=== PATIENT | male | born 1955 | race African-American/Black ===

== ENCOUNTER 2022-11-10 08:35 | Observation (INO) | payer MEDICARE ==
[2022-11-10] MEDS ORDERED: SODIUM CHLORIDE 0.9% 500 ML 500 ML IV STA (09:15)
[2022-11-10] MEDS ORDERED: ASPIRIN 81 MG PO STA (09:15)
[2022-11-10 09:33] LABS: Basophils % (A) 1 %; Eosinophils # (A) 0.2 k/uL (0-0.7); Eosinophils % (A) 2 %; HCT 32.2 % (39.0-53.0); HGB 10.9 gm/dL (13.0-17.5); Lymphocytes # (A) 1.5 k/uL (1.0-4.8); Lymphocytes % (A) 19 %; MCH 25.3 pg (25.0-35.0); MCV 74.5 fL (80.0-100.0); Mean Platelet Volume 8.7; Microcytosis Slight; Monocytes # (A) 0.4 k/uL (0-1.0); Monocytes % (A) 5 %; Neutrophils # (A) 5.9 k/uL (1.3-7.7); Neutrophils % (A) 72 %; Platelet Count 392 k/uL (150-450); RBC 4.33 m/uL (4.30-5.90); RDW 14.2 % (11.5-15.5); WBC 8.1 k/uL (3.8-10.6)
--- NOTE | 2022-11-10 09:40 | XR ---
EXAMINATION TYPE: XR chest 2V DATE OF EXAM: 11/10/2022 9:28 AM COMPARISON: Chest radiographs from TECHNIQUE: XR chest 2V Frontal and lateral views of the chest. CLINICAL INDICATION:Male, 67 years old with history of dysrhythmia; FINDINGS: Lungs/Pleura: Low lung volumes are present. There is no evidence of pleural effusion, focal consolida tion, or pneumothorax. Pulmonary vascularity: Unremarkable. Heart/mediastinum: Cardiomediastinal silhouette is unremarkable. Musculoskeletal: No acute osseous pathology. IMPRESSION: Low lung volumes without acute process.
[2022-11-10 09:42] LABS: Albumin 3.1 g/dL (3.5-5.0); Calcium 8.8 mg/dL (8.4-10.2); Magnesium 1.8 mg/dL (1.6-2.3); Potassium 4.5 mmol/L (3.5-5.1); Total Bilirubin 0.9 mg/dL (0.2-1.3); Total Protein 6.7 g/dL (6.3-8.2)
[2022-11-10 09:47] LABS: INR 1.1 (<1.2); Prothrombin Time 11.5 sec (9.0-12.0)
[2022-11-10] MEDS ORDERED: MORPHINE SULFATE 4 MG/ML SYRINGE IVP STA (09:55)
--- NOTE | 2022-11-10 10:45 | CT ---
EXAMINATION TYPE: CT brain wo con CT DLP: 1202.4 mGycm, Automated exposure control for dose reduction was used. DATE OF EXAM: 11/10/2022 10:29 AM COMPARISON: None CLINICAL INDICATION:Male, 67 years old with history of altered mental status, syncope, ams TECHNIQUE: Brain: Axial CT images of the brain were obtained with coronal and sagittal reformats created and rev iewed. Contrast used: None. Oral contrast used: None. FINDINGS: Brain: Extra-axial spaces: No abnormal extra-axial fluid collections. Ventricular system: Within normal limits Cerebral parenchyma: No acute intraparenchymal hemorrhage or mass effect. The bravo-white junction is well differentiated. Cerebellum: Unremarkable. Mass effect: No evidence of midline shift. Intracranial vasculature: Atherosclerotic calcifications of the intracranial vessels. Soft tissues: Normal. Calvarium/osseous structures: No depressed skull fracture. Paranasal sinuses and mastoid air cells: Mild scattered paranasal sinus disease. Visualized orbits: Bilateral aphakia IMPRESSION: No acute intracranial process.
[2022-11-10] MEDS ORDERED: NALOXONE 0.4 MG/ML 1 ML VIAL IV PRN (11:09)
--- NOTE | 2022-11-10 11:12 | ED ---
General Adult HPI - General Chief complaint: Arrhythmia/Palpitations Stated complaint: bradycardia Time Seen by Provider: 11/10/22 09:02 Source: patient, EMS, RN notes reviewed, old records reviewed Mode of arrival: EMS Limitations: no limitations - History of Present Illness Initial comments: Patient is a 67-year-old male who was sent here from his rehab facility over concern for an episode of being unresponsive. Patient had a low heart rate earlier this morning. Seems slightly lethargic during that episode. It resolved as did his symptoms. Was sent here for further evaluation. Does have a known history of second-degree heart block. He is at rehab currently to regain his strength after recent UTI as well as fall. Does have some sacral ul cers that appear clean. Denies any chest pain or shortness of breath at this time. Denies any lightheadedness. Is asking for a cookie. Denies any other acute complaints at this time. Presents for further evaluation.He states he is not on blood thinners. - Related Data Home Medications Medication Instructions Recorded Confirmed Acetaminophen [Tylenol] 325 mg PO Q6H PRN 11/10/22 11/10/22 Aspirin EC [Ecotrin Low Dose] 81 mg PO DAILY 11/10/22 11/10/22 Atorvastatin Calcium [Lipitor] 40 mg PO DAILY 11/10/22 11/10/22 Cholecalciferol [Vitamin D3 (25 25 mcg PO DAILY 11/10/22 11/10/22 Mcg = 1000 Iu)] Coenzyme Q10 Tablet 100 mg PO BID 11/10/22 11/10/22 Cyanocobalamin [Vitamin B-12 1,000 mcg SQ QMONTHLY 11/10/22 11/10/22 Injection] Diclofenac Sodium [Voltaren] 75 mg PO BID PRN 11/10/22 11/10/22 Docusate [Colace] 100 mg PO BID 11/10/22 11/10/22 Dulaglutide [Trulicity] 1.5 mg SQ MO 11/10/22 11/10/22 Empagliflozin [Jardiance] 25 mg PO DAILY 11/10/22 11/10/22 Epoetin Nestor-Epbx [Retacrit] 4,000 units SQ MOWEFR 11/10/22 11/10/22 Ferrous Sulfate [Iron] 325 mg PO DAILY 11/10/22 11/10/22 Fluticasone Nasal [place] [Flonase 1 spray EA NOSTRIL Q12H 11/10/22 11/10/22 Nasal [place]] Furosemide [Lasix] 40 mg PO DAILY 11/10/22 11/10/22 INSULIN LISPRO (HumaLOG) [humaLOG] See Protocol SQ AC-TID 11/10/22 11/10/22 Insulin Glargine [Lantus Vial] 10 unit SQ DAILY 11/10/22 11/10/22 Lidocaine 5% Patch [Lidoderm] 2 patch TOPICAL DAILY 11/10/22 11/10/22 Losartan Potassium [Cozaar] 100 mg PO DAILY 11/10/22 11/10/22 Lutein 40 mg PO DAILY 11/10/22 11/10/22 Magnesium Hydroxide [Milk of 7,200 mg PO Q48H PRN 11/10/22 11/10/22 Magnesia Concentrate] Melatonin 1 mg PO HS 11/10/22 11/10/22 Metoprolol Succinate (ER) [Toprol 50 mg PO DAILY 11/10/22 11/10/22 Xl] Na Phos,M-B/Na Phos,Di-Ba [Fleet 133 ml RECTAL DAILY PRN 11/10/22 11/10/22 Adult] Pantoprazole Sodium [Protonix] 40 mg PO DAILY 11/10/22 11/10/22 Sennosides-Docusate Sodium 1 tab PO DAILY 11/10/22 11/10/22 [Senokot-S] Sennosides-Docusate Sodium 2 tab PO HS 11/10/22 11/10/22 [Senokot-S] Sildenafil Citrate 100 mg PO DAILY PRN 11/10/22 11/10/22 Tamsulosin HCl [Flomax] 0.4 mg PO DAILY 11/10/22 11/10/22 bisacodyL [Dulcolax] 10 mg RECTAL DAILY PRN 11/10/22 11/10/22 traMADol HCL 50 mg PO Q6H PRN 11/10/22 11/10/22 Allergies Allergy/AdvReac Type Severity Reaction Status Date / Time No Known Allergies Allergy Verified 11/10/22 12:04 Review of Systems ROS Statement: Those systems with pertinent positive or pertinent negative responses have been documented in the HPI. Review of Systems: CONST: Denies fever EYES: Denies blurry vision ENT: Denies nasal congestion C/V: Denies Chest pain RESP: Denies shortness of breath GI: Denies abdominal pain : Denies dysuria SKIN: Denies rash. MSK: Denies joint pain. NEURO: Denies headache ROS Other: All systems not noted in ROS Statement are negative. Past Medical History Past Medical History: Diabetes Mellitus, Hyperlipidemia, Hypertension History of Any Multi-Drug Resistant Organisms: None Reported Past Psychological History: No Psychological Hx Reported Smoking Status: Never smoker Past Alcohol Use History: None Reported Past Drug Use History: None Reported General Exam - General Exam Comments Initial Comments: General: Appears in no acute distress. HEAD: Normal with no signs of head trauma. EYES: PERRLA, EOMI, conjunctiva normal, no discharge. ENT: Hearing grossly intact, normal oropharynx. RESPIRATORY: Clear breath sounds bilaterally. No wheezes, rales, or rhonchi. C/V: Irregular rate and rhythm. S1 and S2 auscultated, no edema, peripheral pulses 2+ and intact throughout ABD: Abd is soft, nontender, nondistended EXT: Normal range of motion, no obvious deformity SKIN: Sacral decubitus ulcers appear clean. Patient also has a decubitus on the back of his neck which also appears clean. All appeared to be stage I to 2. NEURO: Alert and oriented 4. No acute focal deficits. Chronic weakness. Limitations: no limitations Course Vital Signs 11/10/22 11/10/22 11/10/22 08:53 09:00 10:00 Temperature 97.7 F Pulse Rate 71 71 57 L Respiratory 20 16 18 Rate Blood Pressure 173/94 173/94 164/91 O2 Sat by Pulse 99 97 99 Oximetry 11/10/22 11/10/22 11:00 12:00 Temperature Pulse Rate 64 49 L Respiratory 17 7 L Rate Blood Pressure 177/92 O2 Sat by Pulse 98 99 Oximetry Medical Decision Making - Medical Decision Making Based on the patient's presentation and physical exam, I'm concerned for a dysrhythmia for the patient. Has a known history of second-degree heart block. An episode of being more unresponsive/near syncopal at the nursing facility. Unknown if he fell. Patient was bradycardic at that time as well. Intermittently will have heart rates in the 40s here. Did recommend a cardiopulmonary workup which patient was in agreement with. Vital signs otherwise within acceptable limits. EKG does show what appears to be a second-degree heart block. Difficult to evaluated if it is type I or type II. Patient's laboratory studies are remarkable for a chronic anemia with a hemoglobin of 10.9 which is stable. Troponin is undetectable. Chest x-ray revealed no acute cardio pulmonary proces s. Brain CT revealed no acute intracranial injury. On reevaluation, patient is unchanged. He is asymptomatic. Patient's family is at bedside and I did update both the patient and family on his workup. Due to what appeared to be symptomatic bradycardia possibly, second-degree heart block I did recommend that we admit him to the hospital for cardiology evaluation. He was in agreement with this plan. Cardiology was consulted. I spoke with the admitting team, Dr. alas who is admitting for Dr. Pacheco who normally covers Dr. Cabello. He accepted the patient. Patient was admitted in stable condition. Patient was admitted to telemetry floor. Was pt. sent in by a medical professional or institution (, PA, [employer], urgent care, hospital, or intermediate...) When possible be specific @ -long-term for evaluation of bradycardia, near syncope. Did you speak to anyone other than the patient for history (EMS, parent, family, police, friend...)? What history was obtained from this source @ -No Did you review nursing and triage notes (agree or disagree)? Why? @ -I reviewed and agree with nursing and triage notes Were old charts reviewed (outside hosp., previous admission, EMS record, old EKG, old radiological studies, urgent care reports/EKG's, intermediate records)? Report findings @ -Yes, old charts were reviewed from the outside facility. Differential Diagnosis (chest pain, altered mental status, abdominal pain women, abdominal pain men, vaginal bleeding, weakness, fever, dyspnea, syncope, headache, dizziness, GI bleed, back pain, seizure, CVA, palpatations, mental health)? @ -Dehydration, near syncope, arrhythmia, heart block, CAD. This list is not all inclusive. EKG interpreted by me (3pts min.). @ -As above X-rays interpreted by me (1pt min.). @ -Chest x-ray revealed no acute cardiopulmonary process. CT interpreted by me (1pt min.). @ -None done U/S interpreted by me (1pt. min.). @ -None done What testing was considered but not performed or refused? (CT, X-rays, U/S, labs)? Why? @ -None What meds were considered but not given or refused? Why? @ -None Did you discuss the management of the patient with other professionals (professionals i.e. , PA, [employer], lab, RT, psych nurse, social professionals, chemist, teacher, chairman & chief executive officer, porter sample case)? Give summary @ -Yes, the admitting physician Dr. alas who accepted the admission. Was smoking cessation discussed for >3mins.? @ -No Was critical care preformed (if so, how long)? @ -No Were there social determinants of health that impacted care today? How? (Homel essness, low income, unemployed, alcoholism, drug addiction, transportation, low edu. Level, literacy, decrease access to med. care, shelter, rehab)? @ -No Was there de-escalation of care discussed even if they declined (Discuss DNR or withdrawal of care, Hospice)? DNR status @ -No What co-morbidities impacted this encounter? (DM, HTN, Smoking, COPD, CAD, Cancer, CVA, ARF, Chemo, Hep., AIDS, mental health diagnosis, sleep apnea, morbid obesity)? @ -Chronic debility, CAD, hypertension Was patient admitted / discharged? Hospital course, mention meds given and route, prescriptions, significant lab abnormalities, going to OR and other pertinent info. @ -Admitted to the hospital. See above for ED course. Undiagnosed new problem with uncertain prognosis? @ -No Drug Therapy requiring intensive monitoring for toxicity (Heparin, Nitro, Insulin, Cardizem)? @ -No Were any procedures done? @ -No Diagnosis/symptom? @ -Near syncope Acute, or Chronic, or Acute on Chronic? @ -Acute Uncomplicated (without systemic symptoms) or Complicated (systemic symptoms)? @ -Complicated Side effects of treatment? @ -No Exacerbation, Progression, or Severe Exacerbation? @ -No Poses a threat to life or bodily function? How? (Chest pain, [place], [place], pneumonia, PE, COPD, DKA, ARF, appy, cholecystitis, CVA, Diverticulitis, Homicidal, Suicidal, threat to staff... and all critical care pts) @ -No Diagnosis/symptom? @ -Second-degree heart block with bradycardia Acute, or Chronic, or Acute on Chronic? @ -Acute on chronic Uncomplicated (without systemic symptoms) or Complicated (systemic symptoms)? @ -Complicated Side effects of treatment? @ -none Exacerbation, Progression, or Severe Exacerbation] @ -no Poses a threat to life or bodily function? @ -Yes, if untreated can result in significant morbidity and mortality. - Lab Data Result diagrams: 11/10/22 09:20 11/10/22 09:20 Lab Results 11/10/22 11/10/22 11/10/22 Range/Units 09:20 09:20 09:20 WBC 8.1 (3.8-10.6) k/uL RBC 4.33 (4.30-5.90) m/uL Hgb 10.9 L (13.0-17.5) gm/dL Hct 32.2 L (39.0-53.0) % MCV 74.5 L (80.0-100.0) fL MCH 25.3 (25.0-35.0) pg MCHC 34.0 (31.0-37.0) g/dL RDW 14.2 (11.5-15.5) % Plt Count 392 (150-450) k/uL MPV 8.7 Neutrophils % 72 % Lymphocytes % 19 % Monocytes % 5 % Eosinophils % 2 % Basophils % 1 % Neutrophils # 5.9 (1.3-7.7) k/uL Lymphocytes # 1.5 (1.0-4.8) k/uL Monocytes # 0.4 (0-1.0) k/uL Eosinophils # 0.2 (0-0.7) k/uL Basophils # 0.0 (0-0.2) k/uL Microcytosis Slight PT (9.0-12.0) sec INR (<1.2) APTT (22.0-30.0) sec Sodium 136 L (137-145) mmol/L Potassium 4.5 (3.5-5.1) mmol/L Chloride 101 (98-107) mmol/L Carbon Dioxide 30 (22-30) mmol/L Anion Gap 5 mmol/L BUN 14 (9-20) mg/dL Creatinine 1.21 (0.66-1.25) mg/dL Est GFR (CKD-EPI)AfAm 71 (>60 ml/min/1.73 sqM) Est GFR (CKD-EPI)NonAf 61 (>60 ml/min/1.73 sqM) Glucose 155 H (74-99) mg/dL Calcium 8.8 (8.4-10.2) mg/dL Magnesium 1.8 (1.6-2.3) mg/dL Total Bilirubin 0.9 (0.2-1.3) mg/dL AST 24 (17-59) U/L ALT 20 (4-49) U/L Alkaline Phosphatase 132 H (38-126) U/L Troponin I <0.012 (0.000-0.034) ng/mL Total Protein 6.7 (6.3-8.2) g/dL Albumin 3.1 L (3.5-5.0) g/dL TSH 5.980 H (0.465-4.680) mIU/L 11/10/22 Range/Units 09:21 WBC (3.8-10.6) k/uL RBC (4.30-5.90) m/uL Hgb (13.0-17.5) gm/dL Hct (39.0-53.0) % MCV (80.0-100.0) fL MCH (25.0-35.0) pg MCHC (31.0-37.0) g/dL RDW (11.5-15.5) % Plt Count (150-450) k/uL MPV Neutrophils % % Lymphocytes % % Monocytes % % Eosinophils % % Basophils % % Neutrophils # (1.3-7.7) k/uL Lymphocytes # (1.0-4.8) k/uL Monocytes # (0-1.0) k/uL Eosinophils # (0-0.7) k/uL Basophils # (0-0.2) k/uL Microcytosis PT 11.5 (9.0-12.0) sec INR 1.1 (<1.2) APTT 26.0 (22.0-30.0) sec Sodium (137-145) mmol/L Potassium (3.5-5.1) mmol/L Chloride (98-107) mmol/L Carbon Dioxide (22-30) mmol/L Anion Gap mmol/L BUN (9-20) mg/dL Creatinine (0.66-1.25) mg/dL Est GFR (CKD-EPI)AfAm (>60 ml/min/1.73 sqM) Est GFR (CKD-EPI)NonAf (>60 ml/min/1.73 sqM) Glucose (74-99) mg/dL Calcium (8.4-10.2) mg/dL Magnesium (1.6-2.3) mg/dL Total Bilirubin (0.2-1.3) mg/dL AST (17-59) U/L ALT (4-49) U/L Alkaline Phosphatase (38-126) U/L Troponin I (0.000-0.034) ng/mL Total Protein (6.3-8.2) g/dL Albumin (3.5-5.0) g/dL TSH (0.465-4.680) mIU/L - EKG Data -: EKG Interpreted by Me EKG Comments: 12-lead Electrocardiogram Interpretation Note EKG was reviewed and interpreted by myself. 12-lead ECG performed at 0848 is interpreted by me as revealing sinus bradycardia with second degree AV block at a rate of 57 beats per minute. [place] is normal. QRS duration is 105 ms, QTc is 482 ms.. There are T-wave inversions in lead V2 and V3 with no prior EKG for comparison.. R wave progression across the precordium was satisfactory. By my interpretation this EKG is non-diagnostic for acute ischemia. 12-lead Electrocardiogram Interpretation Note EKG was reviewed and interpreted by myself. 12-lead ECG performed at 1003 is interpreted by me as revealing sinus bradycardia with what appears to be second- degree AV block at a rate of 49 beats per minute. [place] is normal. [place] interval is 230 ms, QRS duration is 109 ms, QTc is 434 ms.. There were no ST or T wave abnormalities to suggest myocardial ischemia or injury. R wave progression across the precordium was satisfactory. By my interpretation this EKG is non- diagnostic for acute ischemia. When compared with EKG from earlier, no sign ificant change. The [place] interval does appear to be increasing in length. Disposition Clinical Impression: Second degree heart block, Near syncope, Bradycardia Disposition: ADMITTED IP TO THIS [facility] Condition: Stable Time of Disposition: 10:50
[2022-11-10] MEDS ORDERED: DEXTROSE 50% SYRINGE 50 ML IVP PRN ×2 (12:59)
[2022-11-10 13:06] LABS: Appearance,Urine Clear (Clear); Bilirubin,Urine Negative (Negative); Blood,Urine Negative (Negative); Color,Urine Light Yellow; Glucose,Urine (UA) 4+ (Negative); Ketones,Urine Trace (Negative); Leukocyte Esterase,Urine Moderate (Negative); Mucus,Urine Rare /hpf; Nitrite,Urine Negative (Negative); Protein,Urine Negative (Negative); Specific Gravity,Urine 1.013 (1.001-1.035); Urobilinogen,Urine <2.0 mg/dL (<2.0); WBC,Urine 47 /hpf (0-5)
[2022-11-10] MEDS: FLUTICASONE 50MCG/SPRAY NASAL 16GM EA NOSTRIL SCH (13:34)
[2022-11-10] MEDS: LOSARTAN 50 MG TAB PO SCH (13:55)
[2022-11-10] MEDS: amLODIPine 5 MG TAB PO SCH (13:56)
--- NOTE | 2022-11-10 13:56 | P.CRDCN ---
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 He has a history of hypertension, hyperlipidemia and diabetes. Was recently in [facility] after becoming weak and falling at home. At that time he was found to have a urinary tract infection and spent about 13 days in the hospital. He was subsequently transferred to [facility] for rehab. He's been there since Saturday. He was transferred to the emergency department here after becoming quite lightheaded, somewhat short of breath, and diaphoretic and noted to have a low heart rate. EKG admission and telemetry shows patient to be in second-degree type I AV block with heart rates anywhere from 40s-50s. He continues to have occasional episodes of lightheadedness. Blood pressure has been elevated. Labs showed a hemoglobin of 10.9, sodium 136, potassium 4.5, BUN 14, creatinine 1.21, troponin have been negative 2 and TSH is mildly elevated at 5.980. He complains of lower extremity edema that he's had since he was admitted to [facility]. He denies any dyspnea on exertion but is not very active and has been less active recently. Denies any orthopnea or PND. Denies any chest discomfort, palpitations or syncope. Past Medical History Past Medical History: Diabetes Mellitus, Hyperlipidemia, Hypertension History of Any Multi-Drug Resistant Organisms: None Reported Past Psychological History: No Psychological Hx Reported Smoking Status: Never smoker Past Alcohol Use History: None Reported Past Drug Use History: None Reported Medications and Allergies Home Medications Medication Instructions Recorded Confirmed Type Acetaminophen [Tylenol] 325 mg PO Q6H PRN 11/10/22 11/10/22 History Aspirin EC [Ecotrin Low Dose] 81 mg PO DAILY 11/10/22 11/10/22 History Atorvastatin Calcium [Lipitor] 40 mg PO DAILY 11/10/22 11/10/22 History Cholecalciferol [Vitamin D3 (25 25 mcg PO DAILY 11/10/22 11/10/22 History Mcg = 1000 Iu)] Coenzyme Q10 Tablet 100 mg PO BID 11/10/22 11/10/22 History Cyanocobalamin [Vitamin B-12 1,000 mcg SQ QMONTHLY 11/10/22 11/10/22 History Injection] Diclofenac Sodium [Voltaren] 75 mg PO BID PRN 11/10/22 11/10/22 History Docusate [Colace] 100 mg PO BID 11/10/22 11/10/22 History Dulaglutide [Trulicity] 1.5 mg SQ MO 11/10/22 11/10/22 History Empagliflozin [Jardiance] 25 mg PO DAILY 11/10/22 11/10/22 History Epoetin Nestor-Epbx [Retacrit] 4,000 units SQ MOWEFR 11/10/22 11/10/22 History Ferrous Sulfate [Iron] 325 mg PO DAILY 11/10/22 11/10/22 History Fluticasone Nasal Dougherty [Flonase 1 spray EA NOSTRIL Q12H 11/10/22 11/10/22 History Nasal Dougherty] Furosemide [Lasix] 40 mg PO DAILY 11/10/22 11/10/22 History INSULIN LISPRO (HumaLOG) [humaLOG] See Protocol SQ AC-TID 11/10/22 11/10/22 History Insulin Glargine [Lantus Vial] 10 unit SQ DAILY 11/10/22 11/10/22 History Lidocaine 5% Patch [Lidoderm] 2 patch TOPICAL DAILY 11/10/22 11/10/22 History Losartan Potassium [Cozaar] 100 mg PO DAILY 11/10/22 11/10/22 History Lutein 40 mg PO DAILY 11/10/22 11/10/22 History Magnesium Hydroxide [Milk of 7,200 mg PO Q48H PRN 11/10/22 11/10/22 History Magnesia Concentrate] Melatonin 1 mg PO HS 11/10/22 11/10/22 History Metoprolol Succinate (ER) [Toprol 50 mg PO DAILY 11/10/22 11/10/22 History Xl] Na Phos,M-B/Na Phos,Di-Ba [Fleet 133 ml RECTAL DAILY PRN 11/10/22 11/10/22 History Adult] Pantoprazole Sodium [Protonix] 40 mg PO DAILY 11/10/22 11/10/22 History Sennosides-Docusate Sodium 1 tab PO DAILY 11/10/22 11/10/22 History [Senokot-S] Sennosides-Docusate Sodium 2 tab PO HS 11/10/22 11/10/22 History [Senokot-S] Sildenafil Citrate 100 mg PO DAILY PRN 11/10/22 11/10/22 History Tamsulosin HCl [Flomax] 0.4 mg PO DAILY 11/10/22 11/10/22 History bisacodyL [Dulcolax] 10 mg RECTAL DAILY PRN 11/10/22 11/10/22 History traMADol HCL 50 mg PO Q6H PRN 11/10/22 11/10/22 History Allergies Allergy/AdvReac Type Severity Reaction Status Date / Time No Known Allergies Allergy Verified 11/10/22 12:04 Physical Exam Vitals: Vital Signs Temp Pulse Resp BP Pulse Ox 11/10/22 12:00 49 L 7 L 177/92 99 11/10/22 11:00 64 17 98 11/10/22 10:00 57 L 18 164/91 99 11/10/22 09:00 71 16 173/94 97 11/10/22 08:53 97.7 F 71 20 173/94 99 Intake and Output 11/09/22 11/10/22 11/10/22 22:59 06:59 14:59 Output Total 700 Balance -700 Output: Urine 700 Uretheral (Sheth) 700 Other: Weight 102.058 kg PHYSICAL EXAMINATION: This is a 67-year-old gentleman in no apparent distress at the time of my examination. HEENT: Head is atraumatic, normocephalic. Pupils are equal, round. Sclerae anicteric. Conjunctivae are clear. Mucous membranes of the mouth are moist. Neck is supple. There is no elevated jugular venous pressure. No carotid bruit is heard. CHEST EXAMINATION: Clear to auscultation bilaterally. No wheezes rales or rhonchi. Respirations even and nonlabored. HEART EXAMINATION: Heart regular, positive S1 and S2. No S3. No S4. Systolic murmur ABDOMEN: Soft, nontender. Bowel sounds are heard. No organomegaly noted. EXTREMITIES: 2+ peripheral pulses with evidence of trace to mild peripheral edema and no calf tenderness noted. NEUROLOGIC EXAMINATION: Patient is awake, alert and oriented x3. Results 11/10/22 09:20 11/10/22 09:20 Cardiac Enzymes 11/10/22 11/10/22 11/10/22 Range/Units 09:20 09:20 12:22 AST 24 (17-59) U/L Troponin I <0.012 <0.012 (0.000-0.034) ng/mL Coagulation 11/10/22 Range/Units 09:21 PT 11.5 (9.0-12.0) sec APTT 26.0 (22.0-30.0) sec CBC 11/10/22 Range/Units 09:20 WBC 8.1 (3.8-10.6) k/uL RBC 4.33 (4.30-5.90) m/uL Hgb 10.9 L (13.0-17.5) gm/dL Hct 32.2 L (39.0-53.0) % Plt Count 392 (150-450) k/uL Comprehensive Metabolic Panel 11/10/22 Range/Units 09:20 Sodium 136 L (137-145) mmol/L Potassium 4.5 (3.5-5.1) mmol/L Chloride 101 (98-107) mmol/L Carbon Dioxide 30 (22-30) mmol/L BUN 14 (9-20) mg/dL Creatinine 1.21 (0.66-1.25) mg/dL Glucose 155 H (74-99) mg/dL Calcium 8.8 (8.4-10.2) mg/dL AST 24 (17-59) U/L ALT 20 (4-49) U/L Alkaline Phosphatase 132 H (38-126) U/L Total Protein 6.7 (6.3-8.2) g/dL Albumin 3.1 L (3.5-5.0) g/dL Current Medications Generic Name Dose Route Start Last Admin Trade Name Freq PRN Reason Stop Dose Admin Acetaminophen 325 mg 11/10/22 12:57 Acetaminophen Tab 325 Mg Tab PO Q6H PRN GENERAL DISCOMFORT Aspirin 81 mg 11/11/22 09:00 Aspirin 81 Mg PO DAILY [facility] Atorvastatin Calcium 40 mg 11/11/22 09:00 Atorvastatin 40 Mg Tab PO DAILY [facility] Cyanocobalamin 1,000 mcg 12/10/22 09:00 Cyanocobalamin 1,000 Mcg/Ml 1 Ml Vial SQ QMONTHLY [facility] Dapagliflozin 10 mg 11/11/22 09:00 Dapagliflozin Propanediol 10 Mg Tablet PO DAILY [facility] Dextrose/Water 25 ml 11/10/22 12:59 Dextrose 50% Syringe 50 Ml IVP PER PROTOCOL PRN Hypoglycemia Protocol Dextrose/Water 50 ml 11/10/22 12:59 Dextrose 50% Syringe 50 Ml IVP PER PROTOCOL PRN Hypoglycemia Protocol Ferrous Sulfate 325 mg 11/11/22 09:00 Ferrous Sulfate 325 Mg Tab PO DAILY [facility] Fluticasone Propionate 1 spray 11/10/22 13:00 Fluticasone 50mcg/Dougherty Nasal 16gm EA NOSTRIL Q12H [facility] Furosemide 40 mg 11/11/22 09:00 Furosemide 40 Mg Tab PO DAILY [facility] Heparin Sodium (Porcine) 5,000 unit 11/10/22 16:00 Heparin Sodium,Porcine/Pf 5,000 Unit/0.5 Ml Syringe SQ Q8HR [facility] Insulin Aspart 0 unit 11/10/22 17:30 Insulin Aspart (Novolog) 100 Unit/Ml Vial SQ AC-TID [facility] Protocol Insulin Detemir 10 unit 11/11/22 09:00 Insulin Detemir (Levemir) 100 Unit/Ml Syr SQ DAILY [facility] Losartan Potassium 100 mg 11/11/22 09:00 Losartan 50 Mg Tab PO DAILY [facility] Melatonin 1 mg 11/10/22 21:00 Melatonin 1 Mg Tab PO HS [facility] Metoprolol Succinate 50 mg 11/11/22 09:00 Metoprolol Succinate (Er) 50 Mg Tab.Er.24h PO DAILY [facility] Naloxone HCl 0.2 mg 11/10/22 11:09 Naloxone 0.4 Mg/Ml 1 Ml Vial IV Q2M PRN Opioid Reversal Non-Formulary Medication 100 mg 11/10/22 21:00 Coenzyme Q10 Tablet PO BID [facility] Non-Formulary Medication 4,000 units 11/12/22 12:57 Epoetin Nestor-Epbx [Retacrit] SQ MOWEFR [facility] Pantoprazole Sodium 40 mg 11/11/22 09:00 Pantoprazole 40 Mg Tablet PO DAILY [facility] Tamsulosin HCl 0.4 mg 11/11/22 09:00 Tamsulosin 0.4 Mg Cap.Er.24h PO DAILY [facility] Tramadol HCl 50 mg 11/10/22 12:57 Tramadol 50 Mg Tab PO Q6H PRN Pain Intake and Output 11/09/22 11/10/22 11/10/22 22:59 06:59 14:59 Output Total 700 Balance -700 Output: Urine 700 Uretheral (Sheth) 700 Other: Weight 102.058 kg Patient Weight 11/11/22 06:59 Weight 102.058 kg 11/10/22 09:20 11/10/22 09:20 Assessment and Plan Assessment: #1 symptoms of lightheadedness, shortness of breath diaphoresis 2 second degree type I AV block #3 hypertension, poorly controlled #4 hyperlipidemia #5 diabetes mellitus Plan: From cardiology's perspective we'll work on getting records from [facility]. We will hold the beta judy. We'll obtain a 2-D echo with Doppler study to assess cardiac structure and function. Check a Free T4. Add amlodipine for blood pressure control. Continue to follow patient for further recommendations accordingly. MANAGER TRAINING AND DEVELOPMENT note has been reviewed, I agree with a documented findings and plan of care. Patient was seen and examined.
[2022-11-10 16:37] LABS: Glucose,Whole Blood 139 mg/dL (70-110)
[2022-11-10] MEDS: HEPARIN SODIUM,PORCINE/PF 5,000 UNIT/0.5 ML SYRINGE SQ SCH ×2 (16:40→22:57)
[2022-11-10] MEDS: INSULIN ASPART (NovoLOG) 100 UNIT/ML VIAL SQ SCH (16:43)
[2022-11-10] MEDS ORDERED: bisacodyL 10 MG SUPP RECTAL PRN (17:55)
[2022-11-10] MEDS ORDERED: NON FORMULARY DRUG (Sildenafil Citrate [Sildenafil Citrate] 100 MG Tablet) PO PRN (17:55)
[2022-11-10] MEDS ORDERED: MAGNESIUM HYDROXIDE 2,400 MG/10 ML CUP PO PRN (17:55)
[2022-11-10 20:11] LABS: Glucose,Whole Blood 196 mg/dL (70-110)
[2022-11-10] MEDS: MELATONIN 1 MG TAB PO SCH (20:33)
[2022-11-10] MEDS ORDERED: COENZYME Q10 100 MG PO SCH (21:00)
--- NOTE | 2022-11-10 21:08 | HP ---
HISTORY AND PHYSICAL CHIEF COMPLAINT: Bradycardia and heart block. HISTORY OF PRESENT ILLNESS: This is a 67-year-old gentleman with a past medical history of multiple medical problems, who was recently admitted to [place] with UTI with sepsis. Subsequently, the patient was rehabbed in [facility]. The patient had unresponsiveness and weakness. The patient's EKG showed Wenckebach phenomena, and the patient was admitted for further evaluation, and beta-blockers have been stopped. There is no history of any fever, rigors, or chills. PAST MEDICAL HISTORY: Reviewed includes recent UTI with sepsis. The rest of the history and the rest of the chart are reviewed. HOME MEDICATIONS: Reviewed include metoprolol. Doses and rest of the medications are noted. ALLERGIES: None. FAMILY HISTORY: No history of heart disease or strokes in the family. SOCIAL HISTORY: No history of smoking or alcohol. REVIEW OF SYSTEMS: Fourteen-point review is negative except as mentioned earlier. PHYSICAL EXAMINATION: VITAL SIGNS: Pulse is 56, blood pressure 170/90, respirations 18. HEENT: Conjunctivae are normal. NECK: No jugular venous distention. CARDIOVASCULAR: S1 and S2 muffled. RESPIRATORY: Breath sounds diminished at the bases. No rhonchi. No crackles. ABDOMEN: Soft and nontender. LEGS: No edema. NERVOUS SYSTEM: No focal deficits. SKIN: No ulcers or rashes. JOINT: No active deforming arthropathy. LABORATORY DATA: Reviewed. ASSESSMENT: 1. 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 2. History of recent urinary tract infection with sepsis. 3. Diabetes mellitus, type 2. 4. Hypertension. 5. Hyperlipidemia. 6. Possible sick euthyroid syndrome. RECOMMENDATIONS: Recommend to continue current medications and symptomatic treatment. Otherwise, hold the beta-blockers. Continue the rest of medications. Monitor telemetry. Increase ambulation. PT and OT evaluation. DVT prophylaxis. Monitor blood sugars closely. Cardiology evaluation. Further recommendations to follow. Prognosis is guarded. MMODL / IJN: [id number] /
[2022-11-11] MEDS: FLUTICASONE 50MCG/SPRAY NASAL 16GM EA NOSTRIL SCH ×2 (01:18→14:39)
[2022-11-11] MEDS: traMADol 50 MG TAB PO PRN ×2 (05:14→20:38)
[2022-11-11 06:19] LABS: Glucose,Whole Blood 165 mg/dL (70-110)
[2022-11-11] MEDS: INSULIN ASPART (NovoLOG) 100 UNIT/ML VIAL SQ SCH ×3 (06:34→16:57)
--- NOTE | 2022-11-11 08:15 | CA ---
Transthoracic Echo Report Name: Ryan Cortez Age: 67 Gender: M : 1955 Exam Date: 11/10/2022 16:52 Exam Location: [facility] Ht (in): 74 Wt (lb): 225 Ordering Physician: Elizabeth Matos Attending/Referring Phys: [id number] Screen Door Maker Procedure CPT: Indications: Second degree Type 1 AVB Cardiac Hx: Technical Quality: Technically difficult study Contrast 1: Lumason Total Dose (mL): 4 Contrast 2: Total Dose (mL): MEASUREMENTS (Male / Female) Normal Values 2D ECHO LV Diastolic Diameter PLAX 5.1 cm 4.2 - 5.9 / 3.9 - 5.3 cm LV Systolic Diameter PLAX 3.1 cm IVS Diastolic Thickness 1.4 cm 0.6 - 1.0 / 0.6 - 0.9 cm LVPW Diastolic Thickness 1.2 cm 0.6 - 1.0 / 0.6 - 0.9 cm LV Relative Wall Thickness 0.5 LA Volume 70.2 cm??? 18 - 58 / 22 - 52 cm??? M-MODE Aortic Root Diameter MM 3.9 cm LA Systolic Diameter MM 5.0 cm LA Ao Ratio MM 1.3 AV Cusp Separation MM 1.8 cm DOPPLER AV Peak Velocity 158.2 cm/s AV Peak Gradient 10.0 mmHg LVOT Peak Velocity 125.4 cm/s LVOT Peak Gradient 6.3 mmHg TR Peak Velocity 149.3 cm/s TR Peak Gradient 8.9 mmHg Right Ventricular Systolic Press 13.9 mmHg FINDINGS Left Ventricle Mildly increased septal wall thickness. Normal left ventricular systolic function with no obvious regional wall motion abnormalities. Left ventricular ejection fraction is estimated at 55-60%. Left ventricular cavity size normal. Right Ventricle Normal right ventricular size and function. Right ventricular systolic pressure within normal limits. Right Atrium Right atrium not well visualized. Left Atrium Moderately increased left atrial volume. Mildly increased left atrial area. Mitral Valve No mitral stenosis. Mild mitral regurgitation.mitral annular calcification. Aortic Valve No aortic valve stenosis or regurgitation. Tricuspid Valve Mild tricuspid regurgitation.structurally normal tricuspid valve. Pulmonic Valve Pulmonic valve not well visualized. Pericardium No pericardial effusion. Aorta Normal size aortic root and proximal ascending aorta. CONCLUSIONS Lumason ECHO contrast used for improved visualization of the endocardial borders (inadequate visualization of two or more contiguous segments). 1. Normal left ventricle size and systolic function 2. Mild mitral and tricuspid regurgitation Previewed by: Dr. Ivett Higgins MD (Electronically Signed) Final Date: 11 November 2022 08:14
[2022-11-11 08:44] LABS: Basophils % (A) 1 %; Eosinophils # (A) 0.1 k/uL (0-0.7); Eosinophils % (A) 2 %; HCT 33.1 % (39.0-53.0); HGB 10.7 gm/dL (13.0-17.5); Lymphocytes # (A) 1.4 k/uL (1.0-4.8); Lymphocytes % (A) 19 %; MCH 24.9 pg (25.0-35.0); MCHC 32.3 g/dL (31.0-37.0); Mean Platelet Volume 8.5; Monocytes # (A) 0.4 k/uL (0-1.0); Monocytes % (A) 6 %; Neutrophils # (A) 5.2 k/uL (1.3-7.7); Neutrophils % (A) 71 %; Platelet Count 343 k/uL (150-450); RBC 4.29 m/uL (4.30-5.90); RDW 14.3 % (11.5-15.5); WBC 7.2 k/uL (3.8-10.6)
[2022-11-11] MEDS ORDERED: LOSARTAN 50 MG TAB PO SCH (09:00)
[2022-11-11] MEDS ORDERED: METOPROLOL SUCCINATE (ER) 50 MG TAB.ER.24H PO SCH (09:00)
[2022-11-11] MEDS ORDERED: PANTOPRAZOLE 40 MG TABLET PO SCH (09:00)
[2022-11-11 09:07] LABS: Calcium 8.6 mg/dL (8.4-10.2); Potassium 4.4 mmol/L (3.5-5.1)
[2022-11-11 09:30] LABS: Glucose,Whole Blood 148 mg/dL (70-110)
[2022-11-11] MEDS: CHOLECALCIFEROL 25 MCG (1000 IU) TABLET PO SCH (09:30)
[2022-11-11] MEDS: HEPARIN SODIUM,PORCINE/PF 5,000 UNIT/0.5 ML SYRINGE SQ SCH ×2 (09:30→16:57)
[2022-11-11] MEDS: TAMSULOSIN 0.4 MG CAP.ER.24H PO SCH (09:31)
[2022-11-11] MEDS: FUROSEMIDE 40 MG TAB PO SCH (09:31)
[2022-11-11] MEDS: ATORVASTATIN 40 MG TAB PO SCH (09:31)
[2022-11-11] MEDS: SENNOSIDES-DOCUSATE SODIUM 1 EACH TAB PO SCH (09:31)
[2022-11-11] MEDS: LOSARTAN 50 MG TAB PO SCH (09:31)
[2022-11-11] MEDS: ASPIRIN 81 MG PO SCH (09:31)
[2022-11-11] MEDS: DAPAGLIFLOZIN PROPANEDIOL 10 MG TABLET PO SCH (09:31)
[2022-11-11] MEDS: FERROUS SULFATE 325 MG TAB PO SCH (09:31)
[2022-11-11] MEDS: amLODIPine 5 MG TAB PO SCH (09:31)
[2022-11-11] MEDS: INSULIN DETEMIR (LEVEMIR) 100 UNIT/ML SYR SQ SCH (09:31)
[2022-11-11] MEDS ORDERED: ONDANSETRON 4 MG/2 ML VIAL IVP PRN (09:34)
[2022-11-11] MEDS ORDERED: ONDANSETRON 4 MG/2 ML VIAL IVP STA (09:34)
[2022-11-11 11:40] LABS: Glucose,Whole Blood 162 mg/dL (70-110)
--- NOTE | 2022-11-11 12:22 | P.PN ---
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 He has a history of hypertension, hyperlipidemia and diabetes. Was recently in [facility] after becoming weak and falling at home. At that time he was found to have a urinary tract infection and spent about 13 days in the hospital. He was subsequently transferred to [facility] for rehab. He's been there since Saturday. He was transferred to the emergency department here after becoming quite lightheaded, somewhat short of breath, and diaphoretic and noted to have a low heart rate. EKG admission and telemetry shows patient to be in second-degree type I AV block with heart rates anywhere from 40s-50s. He continues to have occasional episodes of lightheadedness. Blood pressure has been elevated. Labs showed a hemoglobin of 10.9, sodium 136, potassium 4.5, BUN 14, creatinine 1.21, troponin have been negative 2 and TSH is mildly elevated at 5.980. He complains of lower extremity edema that he's had since he was admitted to [facility]. He denies any dyspnea on exertion but is not very active and has been less active recently. Denies any orthopnea or PND. Denies any chest discomfort, palpitations or syncope. 11/11/2022 Patient was seen and examined resting comfortably in bed. Metoprolol succinate continues to be on hold. Continues to have episodes of second-degree type I AV block. Had an episode of nausea, dizziness and diaphoresis morning but is feeling better now. Put pressure is better controlled. But remains elevated. Labs are stable. Echocardiogram with Doppler study showed normal LV systolic function with mild MR and mild TR. Objective - Vital Signs Vital signs: Vital Signs Temp 98.3 F 11/11/22 07:42 Pulse 59 L 11/11/22 07:42 Resp 17 11/11/22 07:42 BP 155/73 11/11/22 07:42 Pulse Ox 100 11/11/22 08:19 FiO2 21 11/10/22 19:57 Intake & Output 11/10/22 11/11/22 11/11/22 18:59 06:59 18:59 Intake Total 10 Output Total 1299 2074 Balance -1299 Weight 145.15 kg Intake: IV 10 0.9 10 Output: Urine 1300 2075 Uretheral (Sheth) 700 Other: Voiding Method Indwelling Catheter Indwelling Catheter Indwelling Catheter - Exam HEENT: Head is atraumatic, normocephalic. Pupils are equal, round. Sclerae anicteric. Conjunctivae are clear. Mucous membranes of the mouth are moist. Neck is supple. There is no elevated jugular venous pressure. No carotid bruit is heard. CHEST EXAMINATION: Clear to auscultation bilaterally. No wheezes rales or rhonchi. Respirations even and nonlabored. HEART EXAMINATION: Heart regular, positive S1 and S2. No S3. No S4. Systolic murmur ABDOMEN: Soft, nontender. Bowel sounds are heard. No organomegaly noted. EXTREMITIES: 2+ peripheral pulses with evidence of trace to mild peripheral edema and no calf tenderness noted. NEUROLOGIC EXAMINATION: Patient is awake, alert and oriented x3. - Labs CBC & Chem 7: 11/11/22 08:06 11/11/22 08:06 Labs: Abnormal Lab Results - Last 24 Hours (Table) 11/10/22 11/10/22 11/10/22 Range/Units 09:20 09:20 16:35 RBC (4.30-5.90) m/uL Hgb (13.0-17.5) gm/dL Hct (39.0-53.0) % MCV (80.0-100.0) fL MCH (25.0-35.0) pg Sodium (137-145) mmol/L Glucose (74-99) mg/dL POC Glucose (mg/dL) 139 H (70-110) mg/dL Hemoglobin A1c 9.6 H (0.0-6.0) % Urine Glucose (UA) 4+ H (Negative) Urine Ketones Trace H (Negative) Ur Leukocyte Esterase Moderate H (Negative) Urine WBC 47 H (0-5) /hpf Urine Mucus Rare H (None) /hpf 11/10/22 11/11/22 11/11/22 Range/Units 20:10 06:18 08:06 RBC (4.30-5.90) m/uL Hgb (13.0-17.5) gm/dL Hct (39.0-53.0) % MCV (80.0-100.0) fL MCH (25.0-35.0) pg Sodium 134 L (137-145) mmol/L Glucose 146 H (74-99) mg/dL POC Glucose (mg/dL) 196 H 165 H (70-110) mg/dL Hemoglobin A1c (0.0-6.0) % Urine Glucose (UA) (Negative) Urine Ketones (Negative) Ur Leukocyte Esterase (Negative) Urine WBC (0-5) /hpf Urine Mucus (None) /hpf 11/11/22 11/11/22 11/11/22 Range/Units 08:06 09:29 11:38 RBC 4.29 L (4.30-5.90) m/uL Hgb 10.7 L (13.0-17.5) gm/dL Hct 33.1 L (39.0-53.0) % MCV 77.0 L (80.0-100.0) fL MCH 24.9 L (25.0-35.0) pg Sodium (137-145) mmol/L Glucose (74-99) mg/dL POC Glucose (mg/dL) 148 H 162 H (70-110) mg/dL Hemoglobin A1c (0.0-6.0) % Urine Glucose (UA) (Negative) Urine Ketones (Negative) Ur Leukocyte Esterase (Negative) Urine WBC (0-5) /hpf Urine Mucus (None) /hpf Microbiology - Last 24 Hours (Table) 11/10/22 09:20 Urine Culture - Final Urine,Voided Assessment and Plan Assessment: #1 symptoms of lightheadedness, shortness of breath diaphoresis 2 second degree type I AV block #3 hypertension, poorly controlled #4 hyperlipidemia #5 diabetes mellitus Plan: From cardiology's perspective we'll work on getting records from [facility]. We will continue to hold the beta judy. Continue to follow blood pressure closely. The symptoms are unlikely to be related to the Second degree type I AVB. Continue to follow patient for further recommendations accordingly. GLUE CLAMP OPERATOR note has been reviewed, I agree with a documented findings and plan of care. Patient was seen and examined.
[2022-11-11] MEDS: hydrALAZINE HCL 25 MG TAB PO SCH ×2 (13:07→20:38)
[2022-11-11] MEDS: MECLIZINE 12.5 MG TAB PO PRN (13:07)
[2022-11-11 16:55] LABS: Glucose,Whole Blood 216 mg/dL (70-110)
[2022-11-11 20:20] LABS: Glucose,Whole Blood 180 mg/dL (70-110)
[2022-11-11] MEDS: PANTOPRAZOLE 40 MG/10 ML VIAL IVP SCH (20:38)
[2022-11-11] MEDS: MELATONIN 1 MG TAB PO SCH (21:18)
[2022-11-12] MEDS: ACETAMINOPHEN TAB 325 MG TAB PO PRN (00:07)
[2022-11-12] MEDS: FLUTICASONE 50MCG/SPRAY NASAL 16GM EA NOSTRIL SCH ×3 (00:12→23:57)
[2022-11-12] MEDS: HEPARIN SODIUM,PORCINE/PF 5,000 UNIT/0.5 ML SYRINGE SQ SCH ×4 (00:12→23:57)
[2022-11-12] MEDS: traMADol 50 MG TAB PO PRN ×3 (05:11→22:03)
[2022-11-12 06:10] LABS: Glucose,Whole Blood 147 mg/dL (70-110)
[2022-11-12] MEDS: INSULIN ASPART (NovoLOG) 100 UNIT/ML VIAL SQ SCH ×3 (06:11→17:04)
--- NOTE | 2022-11-12 06:46 | PN ---
PROGRESS NOTE DATE OF SERVICE: 11/11/2022 SUBJECTIVE: This 67-year-old gentleman was admitted with syncope and also had Wenckebach phenomenon. The patient continued to be symptomatic with dizziness and weakness. The cardiac arrhythmia is persisting. Beta blockers has been stopped. OBJECTIVE: VITAL SIGNS: Pulse 74, blood pressure 117/59, respirations 18. CHEST: Clear to auscultation. CARDIOVASCULAR: S1, S2. ABDOMEN: Soft. NERVOUS SYSTEM: No focal deficits. LABORATORY DATA: Reviewed. ASSESSMENT: 1. Syncope, possibly secondary to Wenckebach phenomenon. 2. and second-degree heart block. 3. History of recent urinary tract infection with sepsis. 4. Diabetes mellitus, type 2. 5. Hypertension. 6. Hyperlipidemia. 7. Possible sick euthyroid syndrome. RECOMMENDATIONS: Recommend to continue current medications, symptomatic treatment. Otherwise, at this time I recommend continued telemetry. Closely follow with Cardiology. Symptomatic treatment will be provided. See orders for further details. Discussed with staff and patient. Further recommendations to follow. MMODL / IJN: [id number] /
[2022-11-12 08:25] LABS: Calcium 8.1 mg/dL (8.4-10.2); Potassium 4.4 mmol/L (3.5-5.1)
[2022-11-12 08:39] LABS: Basophils % (A) 1 %; Eosinophils # (A) 0.1 k/uL (0-0.7); Eosinophils % (A) 1 %; HCT 31.9 % (39.0-53.0); HGB 10.6 gm/dL (13.0-17.5); Lymphocytes # (A) 1.2 k/uL (1.0-4.8); Lymphocytes % (A) 16 %; MCH 25.1 pg (25.0-35.0); MCHC 33.1 g/dL (31.0-37.0); MCV 75.9 fL (80.0-100.0); Mean Platelet Volume 8.9; Monocytes # (A) 0.6 k/uL (0-1.0); Monocytes % (A) 8 %; Neutrophils # (A) 5.7 k/uL (1.3-7.7); Neutrophils % (A) 74 %; Platelet Count 328 k/uL (150-450); RBC 4.21 m/uL (4.30-5.90); RDW 14.1 % (11.5-15.5); WBC 7.8 k/uL (3.8-10.6)
[2022-11-12 08:54] LABS: Glucose,Whole Blood 201 mg/dL (70-110)
[2022-11-12] MEDS ORDERED: DARBEPOETIN ALFA 40 MCG/0.4 ML SYRINGE SQ SCH (09:00)
[2022-11-12] MEDS: SENNOSIDES-DOCUSATE SODIUM 1 EACH TAB PO SCH (09:06)
[2022-11-12] MEDS: CHOLECALCIFEROL 25 MCG (1000 IU) TABLET PO SCH (09:06)
[2022-11-12] MEDS: FUROSEMIDE 40 MG TAB PO SCH (09:06)
[2022-11-12] MEDS: ASPIRIN 81 MG PO SCH (09:06)
[2022-11-12] MEDS: INSULIN DETEMIR (LEVEMIR) 100 UNIT/ML SYR SQ SCH (09:06)
[2022-11-12] MEDS: PANTOPRAZOLE 40 MG/10 ML VIAL IVP SCH ×2 (09:06→20:26)
[2022-11-12] MEDS: LOSARTAN 50 MG TAB PO SCH (09:09)
[2022-11-12] MEDS: TAMSULOSIN 0.4 MG CAP.ER.24H PO SCH (09:10)
[2022-11-12] MEDS: amLODIPine 5 MG TAB PO SCH (09:10)
[2022-11-12] MEDS: ATORVASTATIN 40 MG TAB PO SCH (09:10)
[2022-11-12] MEDS: FERROUS SULFATE 325 MG TAB PO SCH (09:10)
[2022-11-12] MEDS: DAPAGLIFLOZIN PROPANEDIOL 10 MG TABLET PO SCH (09:10)
[2022-11-12] MEDS: hydrALAZINE HCL 25 MG TAB PO SCH (09:10)
--- NOTE | 2022-11-12 11:33 | P.PN ---
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 He has a history of hypertension, hyperlipidemia and diabetes. Was recently in [facility] [place] after becoming weak and falling at home. At that time he was found to have a urinary tract infection and spent about 13 days in the hospital. He was subsequently transferred to [facility] for rehab. He's been there since Saturday. He was transferred to the emergency department here after becoming quite lightheaded, somewhat short of breath, and diaphoretic and noted to have a low heart rate. EKG admission and telemetry shows patient to be in second-degree type I AV block with heart rates anywhere from 40s-50s. He continues to have occasional episodes of lightheadedness. Blood pressure has been elevated. Labs showed a hemoglobin of 10.9, sodium 136, potassium 4.5, BUN 14, creatinine 1.21, troponin have been negative 2 and TSH is mildly elevated at 5.980. He complains of lower extremity edema that he's had since he was admitted to [facility]. He denies any dyspnea on exertion but is not very active and has been less active recently. Denies any orthopnea or PND. Denies any chest discomfort, palpitations or syncope. 11/11/2022 Patient was seen and examined resting comfortably in bed. Metoprolol succinate continues to be on hold. Continues to have episodes of second-degree type I AV block. Had an episode of nausea, dizziness and diaphoresis morning but is feeling better now. Put pressure is better controlled. But remains elevated. Labs are stable. Echocardiogram with Doppler study 11/10/22 showed normal LV systolic function with mild MR and mild TR. 11/12 Patient denies any chest pains, shortness of breath, dizziness, or lightheadedness. Blood pressures better controlled today. HR's 60-80's. PHYSICAL EXAMINATION Vital signs reviewed. CONSTITUTIONAL: No apparent distress. HEENT: Head is normocephalic. Pupils are equal, round. Sclerae anicteric. Mucous membranes of the mouth are moist. No JVD. No carotid bruit. CHEST EXAMINATION: Lungs are clear to auscultation. No chest wall tenderness is noted on palpation or with deep breathing. HEART EXAMINATION: Regular rate and rhythm. S1, S2 heard. No murmurs, gallops or rub. ABDOMEN: Soft, nontender. Positive bowel sounds. EXTREMITIES: 2+ peripheral pulses, no lower extremity edema and no calf tenderness. NEUROLOGIC EXAMINATION: Patient is awake, alert and oriented x3. Assessment: #1 symptoms of lightheadedness, shortness of breath diaphoresis 2 second degree type I AV block #3 hypertension, poorly controlled #4 hyperlipidemia #5 diabetes mellitus Plan: We will continue to hold the beta judy. Continue to follow blood pressure closely. The symptoms are unlikely to be related to the Second degree type I AVB. Patient and daughter updated on plan of care, no indication for pacemaker at this time. Hopeful DC from cardio standpoint in next 24 hrs if remains stable Objective - Vital Signs Vital signs: Vital Signs Temp 97.8 F 11/12/22 08:00 Pulse 82 11/12/22 08:00 Resp 17 11/12/22 08:00 BP 133/80 11/12/22 08:00 Pulse Ox 96 11/12/22 08:00 FiO2 21 11/10/22 19:57 Intake & Output 11/11/22 11/12/22 11/12/22 18:59 06:59 18:59 Output Total 1200 1250 500 Balance -1200 -1250 -500 Output: Urine 1200 1250 500 Other: Voiding Method Indwelling Catheter Indwelling Catheter - Labs CBC & Chem 7: 11/12/22 07:07 11/12/22 07:07 Labs: Abnormal Lab Results - Last 24 Hours (Table) 11/11/22 11/11/22 11/11/22 Range/Units 11:38 16:52 20:18 RBC (4.30-5.90) m/uL Hgb (13.0-17.5) gm/dL Hct (39.0-53.0) % MCV (80.0-100.0) fL Sodium (137-145) mmol/L Carbon Dioxide (22-30) mmol/L Creatinine (0.66-1.25) mg/dL Glucose (74-99) mg/dL POC Glucose (mg/dL) 162 H 216 H 180 H (70-110) mg/dL Calcium (8.4-10.2) mg/dL 11/12/22 11/12/22 11/12/22 Range/Units 06:08 07:07 07:07 RBC 4.21 L (4.30-5.90) m/uL Hgb 10.6 L (13.0-17.5) gm/dL Hct 31.9 L (39.0-53.0) % MCV 75.9 L (80.0-100.0) fL Sodium 135 L (137-145) mmol/L Carbon Dioxide 31 H (22-30) mmol/L Creatinine 1.31 H (0.66-1.25) mg/dL Glucose 144 H (74-99) mg/dL POC Glucose (mg/dL) 147 H (70-110) mg/dL Calcium 8.1 L (8.4-10.2) mg/dL 11/12/22 Range/Units 08:52 RBC (4.30-5.90) m/uL Hgb (13.0-17.5) gm/dL Hct (39.0-53.0) % MCV (80.0-100.0) fL Sodium (137-145) mmol/L Carbon Dioxide (22-30) mmol/L Creatinine (0.66-1.25) mg/dL Glucose (74-99) mg/dL POC Glucose (mg/dL) 201 H (70-110) mg/dL Calcium (8.4-10.2) mg/dL Microbiology - Last 24 Hours (Table) 11/10/22 09:20 Urine Culture - Final Urine,Voided
[2022-11-12 11:37] LABS: Glucose,Whole Blood 161 mg/dL (70-110)
[2022-11-12 15:11] VITALS: BMI 41.1
--- NOTE | 2022-11-12 16:25 | P.PN ---
Subjective Patient is admitted for lightheadedness and diaphoresis and patient is found to have second-degree type I AV block which was initially believed to be causing the symptoms would patient about was a valid by cardiology, cardiology discontinued beta judy and they do not believe the second-degree AV block is contributing to his symptoms. Patient blood pressure was apparently uncontrolled for which the multiple new medications were added including amlodipine, Norvasc. Patient is already on Lasix losartan and multiple other and it was a medications. Patient serum creatinine is bit worse today probably because of aggressive blood pressure management because of which I'll hold off on hydralazine and the Lasix continue with the rest of the edematous medications will recheck the creatinine tomorrow. Cardiology is according monitoring one mo re night for any lightheadedness symptoms. Patient apparently had a fall has swelling of the right knee is complaining of pain in the right knee along the x- ray patient does have some swelling in the right knee. Patient does have scars from his previous surgery in the right knee. Constitutional: Denied any fatigue denied any fever. Cardio vascular: denied any chest pain, palpitations Gastrointestinal denied any nausea vomiting Pulmonary: Denied any shortness of breath cough Neurologic denied any new focal deficits All inpatient medications were reviewed and appropriate changes in these med ications as dictated in the interval history and assessment and plan. PHYSICAL EXAMINATION: GENERAL: The patient is alert and oriented x3, not in any acute distress. Well developed, well nourished. HEENT: Pupils are round and equally reacting to light. EOMI. No scleral icterus. No conjunctival pallor. Normocephalic, atraumatic. No pharyngeal erythema. No thyromegaly. CARDIOVASCULAR: S1 and S2 present. No murmurs, rubs, or gallops. PULMONARY: Chest is clear to auscultation, no wheezing or crackles. ABDOMEN: Soft, nontender, nondistended, normoactive bowel sounds. No palpable organomegaly. EXTREMITIES: No cyanosis, clubbing, or pedal edema. there is some right knee swelling NEUROLOGICAL: Gross neurological examination did not reveal any focal deficits. SKIN: No rashes. Assessment and plan -Lightheadedness, dizziness etiology is not clear initially believed to be secondary to second-degree beta judy was discontinued patient will be monitored one more night. Cardiology is recommending not requiring a pacemaker -Hypertension well controlled at this time -Acute renal failure probably secondary to aggressive blood pressure control, discontinue above-mentioned medications will monitor the kidney function -Hyperlipidemia -Type 2 diabetes mellitus -Right knee pain we'll obtain an x-ray. -DVT prophylaxis: Subcutaneous heparin Objective - Vital Signs Vital signs: Vital Signs Temp 98.5 F 11/12/22 12:00 Pulse 99 11/12/22 12:00 Resp 19 11/12/22 12:00 BP 132/99 11/12/22 12:00 Pulse Ox 98 11/12/22 12:00 FiO2 21 11/10/22 19:57 Intake & Output 11/11/22 11/12/22 11/12/22 18:59 06:59 18:59 Intake Total 180 Output Total 1200 1250 1700 Balance -1200 -1250 -1520 Weight 145.15 kg Intake: Oral 180 Output: Urine 1200 1250 1700 Other: Voiding Method Indwelling Catheter Indwelling Catheter Indwelling Catheter - Labs CBC & Chem 7: 11/12/22 07:07 11/12/22 07:07 Labs: Abnormal Lab Results - Last 24 Hours (Table) 11/11/22 11/11/22 11/12/22 Range/Units 16:52 20:18 06:08 RBC (4.30-5.90) m/uL Hgb (13.0-17.5) gm/dL Hct (39.0-53.0) % MCV (80.0-100.0) fL Sodium (137-145) mmol/L Carbon Dioxide (22-30) mmol/L Creatinine (0.66-1.25) mg/dL Glucose (74-99) mg/dL POC Glucose (mg/dL) 216 H 180 H 147 H (70-110) mg/dL Calcium (8.4-10.2) mg/dL 11/12/22 11/12/22 11/12/22 Range/Units 07:07 07:07 08:52 RBC 4.21 L (4.30-5.90) m/uL Hgb 10.6 L (13.0-17.5) gm/dL Hct 31.9 L (39.0-53.0) % MCV 75.9 L (80.0-100.0) fL Sodium 135 L (137-145) mmol/L Carbon Dioxide 31 H (22-30) mmol/L Creatinine 1.31 H (0.66-1.25) mg/dL Glucose 144 H (74-99) mg/dL POC Glucose (mg/dL) 201 H (70-110) mg/dL Calcium 8.1 L (8.4-10.2) mg/dL 11/12/22 Range/Units 11:36 RBC (4.30-5.90) m/uL Hgb (13.0-17.5) gm/dL Hct (39.0-53.0) % MCV (80.0-100.0) fL Sodium (137-145) mmol/L Carbon Dioxide (22-30) mmol/L Creatinine (0.66-1.25) mg/dL Glucose (74-99) mg/dL POC Glucose (mg/dL) 161 H (70-110) mg/dL Calcium (8.4-10.2) mg/dL
[2022-11-12 16:42] LABS: Glucose,Whole Blood 165 mg/dL (70-110)
--- NOTE | 2022-11-12 16:58 | XR ---
EXAMINATION TYPE: XR knee complete RT DATE OF EXAM: 11/12/2022 COMPARISON: NONE HISTORY: Knee pain. Fall. TECHNIQUE: 3 views FINDINGS: There is some spurring on the patella. There is mild knee joint effusion. There is spurring at the tibial tubercle. There is narrowing of the joint spaces and more on the lateral aspect. There is calcification of the menisci. No fracture seen. IMPRESSION: Osteoarthritis and chondrocalcinosis. Small knee joint effusion. No fracture seen.
[2022-11-12] MEDS ORDERED: NON FORMULARY DRUG (Dulaglutide [Trulicity] 1.5 MG/0.5 ML Each) SQ SCH (17:55)
[2022-11-12] MEDS: MELATONIN 1 MG TAB PO SCH (20:26)
[2022-11-12 20:37] LABS: Glucose,Whole Blood 217 mg/dL (70-110)
[2022-11-13] MEDS: traMADol 50 MG TAB PO PRN (04:53)
[2022-11-13 06:22] LABS: Glucose,Whole Blood 135 mg/dL (70-110)
[2022-11-13] MEDS: INSULIN ASPART (NovoLOG) 100 UNIT/ML VIAL SQ SCH ×2 (06:29→11:41)
[2022-11-13 07:58] LABS: Calcium 8.5 mg/dL (8.4-10.2); Potassium 4.2 mmol/L (3.5-5.1)
[2022-11-13 08:21] LABS: Glucose,Whole Blood 141 mg/dL (70-110)
[2022-11-13] MEDS: LOSARTAN 50 MG TAB PO SCH (08:42)
[2022-11-13] MEDS: TAMSULOSIN 0.4 MG CAP.ER.24H PO SCH (08:42)
[2022-11-13] MEDS: ASPIRIN 81 MG PO SCH (08:42)
[2022-11-13] MEDS: ATORVASTATIN 40 MG TAB PO SCH (08:42)
[2022-11-13] MEDS: FERROUS SULFATE 325 MG TAB PO SCH (08:43)
[2022-11-13] MEDS: CHOLECALCIFEROL 25 MCG (1000 IU) TABLET PO SCH (08:43)
[2022-11-13] MEDS: ACETAMINOPHEN TAB 325 MG TAB PO PRN (08:43)
[2022-11-13] MEDS: HEPARIN SODIUM,PORCINE/PF 5,000 UNIT/0.5 ML SYRINGE SQ SCH (08:43)
[2022-11-13] MEDS: INSULIN DETEMIR (LEVEMIR) 100 UNIT/ML SYR SQ SCH (08:43)
[2022-11-13] MEDS: amLODIPine 5 MG TAB PO SCH (08:43)
[2022-11-13] MEDS: PANTOPRAZOLE 40 MG/10 ML VIAL IVP SCH (08:43)
[2022-11-13] MEDS: SENNOSIDES-DOCUSATE SODIUM 1 EACH TAB PO SCH (08:43)
[2022-11-13] MEDS: DAPAGLIFLOZIN PROPANEDIOL 10 MG TABLET PO SCH (08:43)
[2022-11-13 11:26] VITALS: BP 124/66; PULSE 72; RESP 18; TEMP 97.6
--- NOTE | 2022-11-13 11:28 | P.PN ---
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 He has a history of hypertension, hyperlipidemia and diabetes. Was recently in [facility] after becoming weak and falling at home. At that time he was found to have a urinary tract infection and spent about 13 days in the hospital. He was subsequently transferred to [facility] for rehab. He's been there since Saturday. He was transferred to the emergency department here a fter becoming quite lightheaded, somewhat short of breath, and diaphoretic and noted to have a low heart rate. EKG admission and telemetry shows patient to be in second-degree type I AV block with heart rates anywhere from 40s-50s. He continues to have occasional episodes of lightheadedness. Blood pressure has been elevated. Labs showed a hemoglobin of 10.9, sodium 136, potassium 4.5, BUN 14, creatinine 1.21, troponin have been negative 2 and TSH is mildly elevated at 5.980. He complains of lower extremity edema that he's had since he was admitted to [facility]. He denies any dyspnea on exertion but is not very active and has been less active recently. Denies any orthopnea or PND. Denies any chest discomfort, palpitations or syncope. 11/11/2022 Patient was seen and examined resting comfortably in bed. Metoprolol succinate continues to be on hold. Continues to have episodes of second-degree type I AV block. Had an episode of nausea, dizziness and diaphoresis morning but is feeling better now. Put pressure is better controlled. But remains elevated. Labs are stable. Echocardiogram with Doppler study 11/10/22 showed normal LV systolic function with mild MR and mild TR. 11/12 Patient denies any chest pains, shortness of breath, dizziness, or lightheadedness. Blood pressures better controlled today. HR's 60-80's. 11/13 Patient states that he was feeling a little lightheaded and then upset stomach this morning lasted about 30 minutes. It has resolved. He denies having any chest pain or pressure. Heart rate has been in the 60s and 70s, blood pressure 124/66, pulse ox 97% on room air. Repeat blood work reveals potassium 4.2, BUN 13 creatinine 1.22. PHYSICAL EXAMINATION Vital signs reviewed. CONSTITUTIONAL: No apparent distress. HEENT: Head is normocephalic. Pupils are equal, round. Sclerae anicteric. Mucous membranes of the mouth are moist. No JVD. No carotid bruit. CHEST EXAMINATION: Lungs are clear to auscultation. No chest wall tenderness is noted on palpation or with deep breathing. HEART EXAMINATION: Regular rate and rhythm. S1, S2 heard. No murmurs, gallops or rub. ABDOMEN: Soft, nontender. EXTREMITIES: 2+ peripheral pulses, no lower extremity edema and no calf tenderness. NEUROLOGIC EXAMINATION: Patient is awake, alert and oriented x3. Assessment: #1 symptoms of lightheadedness, shortness of breath diaphoresis, does not appear related to bradycardia #2 second degree type I AV block #3 hypertension, poorly controlled #4 hyperlipidemia #5 diabetes mellitus Plan: We will continue to hold the beta judy. No plan for pacemaker and no further cardiac workup warranted at this time Cardiology will sign off and follow on an as-needed basis. Please reconsult for any new concerns. Nurse practitioner note has been reviewed, I agree with the documented findings and plan of care. Patient was seen and examined. Objective - Vital Signs Vital signs: Vital Signs Temp 97.6 F 11/13/22 11:23 Pulse 72 11/13/22 11:23 Resp 18 11/13/22 11:23 BP 124/66 11/13/22 11:23 Pulse Ox 97 11/13/22 11:23 FiO2 21 11/10/22 19:57 Intake & Output 11/12/22 11/13/22 11/13/22 18:59 06:59 18:59 Intake Total 534 Output Total 1700 2225 Balance -1166 -2225 Weight 145.15 kg Intake: Oral 534 Output: Urine 1700 2225 Other: Voiding Method Indwelling Catheter Indwelling Catheter Indwelling Catheter - Labs CBC & Chem 7: 11/12/22 07:07 11/13/22 07:22 Labs: Abnormal Lab Results - Last 24 Hours (Table) 11/12/22 11/12/22 11/12/22 Range/Units 11:36 16:41 20:35 Sodium (137-145) mmol/L Glucose (74-99) mg/dL POC Glucose (mg/dL) 161 H 165 H 217 H (70-110) mg/dL 11/13/22 11/13/22 11/13/22 Range/Units 06:17 07:22 08:19 Sodium 134 L (137-145) mmol/L Glucose 139 H (74-99) mg/dL POC Glucose (mg/dL) 135 H 141 H (70-110) mg/dL
[2022-11-13 11:40] LABS: Glucose,Whole Blood 121 mg/dL (70-110)
[2022-11-13] MEDS: MECLIZINE 12.5 MG TAB PO PRN (12:06)
[2022-11-13] MEDS: FLUTICASONE 50MCG/SPRAY NASAL 16GM EA NOSTRIL SCH (12:07)
--- NOTE | 2022-11-13 14:21 | P.DS ---
Providers Date of admission: 11/10/22 11:09 Expected date of discharge: 11/13/22 Attending physician: Brandon Torres MD Consults: 11/10/22 11:09 Consult Physician Routine Consulting Provider: [facility] Consult Reason/Comments: second degree heart block, symptomatic Do you want consulting provider notified?: Yes Primary care physician: [facility] Course: Final diagnosis Lightheadedness, dizziness, etiology not clear thought initially to be secondary to second-degree block on EKG and beta judy was discontinued Hypertension history Acute renal failure probably secondary to aggressive blood pressure control, recommending holding Lasix until follow-up labs in the next 2-3 days Hyperlipidemia Diabetes mellitus, type II, insulin-dependent Morbid obesity with a BMI of 41.1 Right knee pain status post fall with no fractures noted DVT prophylaxis GI prophylaxis Full code Discharge disposition Patient is being discharged in a stable condition with guarded prognosis to [facility]. Patient will follow-up with Dr. Cabello in the outpatient setting upon discharge. Patient is to continue to hold metoprolol and follow-up with cardiology in the outpatient setting in the next 1-2 weeks as scheduled. Total time taken is greater than 35 minutes. Hospital course This is a 67-year-old male who was recently admitted with an episode of lig htheadedness and diaphoresis found to have second-degree type I AV block and evaluated closely by cardiology. Cardiology recommends holding beta judy and they do not believe this is a second-degree AV block that's causing his symptoms. Patient had uncontrolled blood pressures and have added Norvasc to optimize blood pressure management. Patient normally takes hydralazine with Lasix although recommend holding as kidney functions were mildly elevated on admission and recommend repeat labs in the next 2-3 days to monitor electrolytes and kidney functions prior to resuming Lasix. Cardiology recommending holding the patient for an additional 24 hours to follow-up with the a.m. Patient was seen and evaluated by cardiology this morning and has cleared the patient for discharge. Patient had a fall with some swelling of the right knee and x-ray shows no acute fracture just a trace of fluid noted. Patient does continue with indwelling Sheth catheter which was reported as retention and recommended continue with for now and trial void in the outpatient setting. Patient has been staying at [facility] for rehab and will be returning there. Covid 19 testing was negative. Patient with some mild dizziness and episode of nausea with no vomiting noted has been started on low-dose meclizine as needed. Currently no reports of chest pain, shortness of breath, or palpitations. Patient is a febrile. No reports of nausea or vomiting and patient is tolerating diet. Patient will be discharged to [facility] today. Guarded prognosis. Physical exam: Gen: This is a 67-year-old male who is awake, alert and oriented 3, well- developed, well-nourished, morbidly obese HEENT: Head is atraumatic, normocephalic. Pupils equal, round. Sclerae is anicteric. NECK: Supple. No JVD. No lymphadenopathy. No thyromegaly. LUNGS: Clear to auscultation. No wheezes or rhonchi. No intercostal retractions. HEART: Regular rate and rhythm. No murmur. ABDOMEN: Soft. Bowel sounds are present. No masses. No tenderness. EXTREMITIES: No pedal edema. No calf tenderness. Right knee tenderness on palpation NEUROLOGICAL: Patient is awake, alert and oriented x3. Cranial nerves 2 through 12 are grossly intact. Diffusely weak Please refer to medication reconciliation sheet for a list of medications. The impression and plan of care has been dictated by Suki Walton, Nurse Practitioner as directed. Dr. Thomas MD I have performed a history and examination and MDM of this patient, discussed the same with the dictator, and agree with the dictator's assessment and plan as written ,documented as a scribe. Based on total visit time, I have performed more than 50% of the visit. Patient Condition at Discharge: Stable Plan - Discharge Summary Discharge Rx Participant: No New Discharge Prescriptions: New Meclizine [Antivert] 6.25 mg PO TID PRN tab PRN Reason: Vertigo Heparin Sodium,Porcine [Heparin Sodium] 5,000 unit SQ Q12HR 30 Days #60 each amLODIPine [Norvasc] 5 mg PO DAILY tab Continue Sennosides-Docusate Sodium [Senokot-S] 2 tab PO HS Docusate [Colace] 100 mg PO BID Pantoprazole Sodium [Protonix] 40 mg PO DAILY Insulin Glargine [Lantus Vial] 10 unit SQ DAILY Empagliflozin [Jardiance] 25 mg PO DAILY INSULIN LISPRO (HumaLOG) [humaLOG] See Protocol SQ AC-TID Tamsulosin HCl [Flomax] 0.4 mg PO DAILY Fluticasone Nasal Congress [Flonase Nasal Congress] 1 spray EA NOSTRIL Q12H Losartan Potassium [Cozaar] 100 mg PO DAILY Diclofenac Sodium [Voltaren] 75 mg PO BID PRN PRN Reason: Pain Coenzyme Q10 Tablet 100 mg PO BID Cholecalciferol [Vitamin D3 (25 Mcg = 1000 Iu)] 25 mcg PO DAILY Atorvastatin Calcium [Lipitor] 40 mg PO DAILY Acetaminophen [Tylenol] 325 mg PO Q6H PRN PRN Reason: GENERAL DISCOMFORT Dulaglutide [Trulicity] 1.5 mg SQ MO Cyanocobalamin [Vitamin B-12 Injection] 1,000 mcg SQ QMONTHLY Sildenafil Citrate 100 mg PO DAILY PRN PRN Reason: E.D Sennosides-Docusate Sodium [Senokot-S] 1 tab PO DAILY Epoetin Nestor-Epbx [Retacrit] 4,000 units SQ MOWEFR Melatonin 1 mg PO HS Magnesium Hydroxide [Milk of Magnesia Concentrate] 7,200 mg PO Q48H PRN PRN Reason: Constipation Lutein 40 mg PO DAILY Lidocaine 5% Patch [Lidoderm 5% Patch] 2 patch TOPICAL DAILY Na Phos,M-B/Na Phos,Di-Ba [Fleet Adult] 133 ml RECTAL DAILY PRN PRN Reason: Constipation Ferrous Sulfate [Iron] 325 mg PO DAILY bisacodyL [Dulcolax] 10 mg RECTAL DAILY PRN PRN Reason: Constipation Aspirin EC [Ecotrin Low Dose] 81 mg PO DAILY traMADol HCL 50 mg PO Q6H PRN #6 tab PRN Reason: Pain Discontinued Metoprolol Succinate (ER) [Toprol Xl] 50 mg PO DAILY Furosemide [Lasix] 40 mg PO DAILY Discharge Medication List Acetaminophen [Tylenol] 325 mg PO Q6H PRN 11/10/22 [History] Aspirin EC [Ecotrin Low Dose] 81 mg PO DAILY 11/10/22 [History] Atorvastatin Calcium [Lipitor] 40 mg PO DAILY 11/10/22 [History] Cholecalciferol [Vitamin D3 (25 Mcg = 1000 Iu)] 25 mcg PO DAILY 11/10/22 [Hist ory] Coenzyme Q10 Tablet 100 mg PO BID 11/10/22 [History] Cyanocobalamin [Vitamin B-12 Injection] 1,000 mcg SQ QMONTHLY 11/10/22 [History] Diclofenac Sodium [Voltaren] 75 mg PO BID PRN 11/10/22 [History] Docusate [Colace] 100 mg PO BID 11/10/22 [History] Dulaglutide [Trulicity] 1.5 mg SQ MO 11/10/22 [History] Empagliflozin [Jardiance] 25 mg PO DAILY 11/10/22 [History] Epoetin Nestor-Epbx [Retacrit] 4,000 units SQ MOWEFR 11/10/22 [History] Ferrous Sulfate [Iron] 325 mg PO DAILY 11/10/22 [History] Fluticasone Nasal Congress [Flonase Nasal Congress] 1 spray EA NOSTRIL Q12H 11/10/22 [History] INSULIN LISPRO (HumaLOG) [humaLOG] See Protocol SQ AC-TID 11/10/22 [History] Insulin Glargine [Lantus Vial] 10 unit SQ DAILY 11/10/22 [History] Lidocaine 5% Patch [Lidoderm 5% Patch] 2 patch TOPICAL DAILY 11/10/22 [History] Losartan Potassium [Cozaar] 100 mg PO DAILY 11/10/22 [History] Lutein 40 mg PO DAILY 11/10/22 [History] Magnesium Hydroxide [Milk of Magnesia Concentrate] 7,200 mg PO Q48H PRN 11/10/22 [History] Melatonin 1 mg PO HS 11/10/22 [History] Na Phos,M-B/Na Phos,Di-Ba [Fleet Adult] 133 ml RECTAL DAILY PRN 11/10/22 [History] Pantoprazole Sodium [Protonix] 40 mg PO DAILY 11/10/22 [History] Sennosides-Docusate Sodium [Senokot-S] 1 tab PO DAILY 11/10/22 [History] Sennosides-Docusate Sodium [Senokot-S] 2 tab PO HS 11/10/22 [History] Sildenafil Citrate 100 mg PO DAILY PRN 11/10/22 [History] Tamsulosin HCl [Flomax] 0.4 mg PO DAILY 11/10/22 [History] bisacodyL [Dulcolax] 10 mg RECTAL DAILY PRN 11/10/22 [History] Heparin Sodium,Porcine [Heparin Sodium] 5,000 unit SQ Q12HR 30 Days #60 each 11/13/22 [Rx] Meclizine [Antivert] 6.25 mg PO TID PRN tab 11/13/22 [Rx] amLODIPine [Norvasc] 5 mg PO DAILY tab 11/13/22 [Rx] traMADol HCL 50 mg PO Q6H PRN #6 tab 11/13/22 [Rx] Follow up Appointment(s)/Referral(s): Garret Cabello DO [Primary Care Provider] - 1-2 days Activity/Diet/Wound Care/Special Instructions: Patient is returning to [facility] Activity as tolerated Continue with indwelling Sheth catheter Continue current cardiac medications and has been evaluated by cardiology Recommend continue holding Lasix for now and follow-up with repeat labs of CBC and BMP in the next 2-3 days, kidney functions improving and creatinine is 1.22 today Recommend continuing heart healthy cardiac/diabetic diet Recommend continue monitoring Accu-Cheks before meals and at bedtime and continue current medication regimen Beta judy on hold for now per cardiology and recommended cardiology follow-up Discharge Disposition: TRANSFER TO SNF/ECF
[2022-12-10] MEDS ORDERED: CYANOCOBALAMIN 1,000 MCG/ML 1 ML VIAL SQ SCH (09:00)
== END 2022-11-13 17:20 ==
LOC: EC 08:35 → 3SCARD 11:09
PROVIDERS: ADMIT Internal Medicine; ATTEND Internal Medicine
DX: R42 Dizziness and giddiness (principal); N17.9 Acute kidney failure, unspecified; E86.0 Dehydration; I44.1 Atrioventricular block, second degree; R61 Generalized hyperhidrosis; R55 Syncope and collapse; L89.152 Pressure ulcer of sacral region, stage 2; L89.892 Pressure ulcer of other site, stage 2; E11.622 Type 2 diabetes mellitus with other skin ulcer; E78.5 Hyperlipidemia, unspecified; I10 Essential (primary) hypertension; I25.10 Atherosclerotic heart disease of native coronary artery without angina pectoris; D64.9 Anemia, unspecified; M25.561 Pain in right knee; W19.XXXA Unspecified fall, initial encounter; M25.461 Effusion, right knee; M11.261 Other chondrocalcinosis, right knee; M17.11 Unilateral primary osteoarthritis, right knee; E66.01 Morbid (severe) obesity due to excess calories; Z68.41 Body mass index [BMI] 40.0-44.9, adult; Z20.822 Contact with and (suspected) exposure to COVID-19; Z79.82 Long term (current) use of aspirin; Z79.899 Other long term (current) drug therapy; Z79.84 Long term (current) use of oral hypoglycemic drugs; Z79.85 Long-term (current) use of injectable non-insulin antidiabetic drugs; Z79.4 Long term (current) use of insulin; Z87.440 Personal history of urinary (tract) infections; Z86.19 Personal history of other infectious and parasitic diseases; Z91.81 History of falling; Y92.009 Unspecified place in unspecified non-institutional (private) residence as the place of occurrence of the external cause
CPT/HCPCS: 96376 ×2; 96372 ×4; 96375; 96361; 96374; 99285; 36415; 94760 ×4; 97162; 97535; 97166; 84439; 80053; 80048 ×3; 83735; 84443; 84484; 85025 ×3; 85610; 85730; 81001; 87086; 83036; 87635; 73562; 71046; 70450; G0378 ×4; C8929; J2270; J2405 ×2; C9113 ×3; J0881; Q9950; J1644 ×4; 93005; 93306